=== PATIENT | female | born 1985 | race Caucasian/White ===

== ENCOUNTER 2022-11-24 17:32 | Inpatient (IN) | payer MEDICAID ==
[~2022-11-24] VITALS: Ht 172.7 cm; Wt 86.2 kg
[2022-11-24 17:39] VITALS: BP 119/74
--- NOTE | 2022-11-24 18:03 | NUR ---
Dr. Fletcher evaluating patient at bedside.
--- NOTE | 2022-11-24 18:09 | NUR ---
37 y/o female bib self with c/o SOB x 7 days. Per patient, she is having increased SOB in the past couple of days. Patient has non-productive cough and congestion. Denies any fever or chills. Patient is saturating at 94% oxygen on room air. Medical History:Asthma, Cardiac Arrest (April 2022) ALLERGY: CIPROFLOXACIN
[2022-11-24] MEDS ORDERED: IPRATROPIUM 0.02% 0.5 MG/2.5 ML NEBU INH ONE (18:10)
[2022-11-24] MEDS ORDERED: methylPREDNISolone SS 125 MG/2 ML VIAL IVP ONE (18:10)
[2022-11-24] MEDS ORDERED: ALBUTEROL 0.083% 2.5 MG/3 ML NEBU INH ONE (18:10)
--- NOTE | 2022-11-24 18:31 | NUR ---
X-Ray at bedside.
[2022-11-24 18:34] LABS: BASOPHILS # (AUTO) 0.1 K/uL (0.00-0.22); BASOPHILS % (AUTO) 1.2 % (0.0-2.0); EOSINOPHILS # (AUTO) 1.8 K/uL (0-0.4); EOSINOPHILS % (AUTO) 21.6 % (0.0-4.0); HEMATOCRIT 38.5 % (36-48); HEMOGLOBIN 13.2 g/dL (12.0-16.0); LYMPHOCYTES # (AUTO) 2.3 K/uL (2.5-16.5); LYMPHOCYTES % (AUTO) 27.7 % (20.5-51.1); MEAN CORPUSCULAR HEMOGLOBIN 29 pg (27-31); MEAN CORPUSCULAR HGB CONC 34 g/dL (33-37); MEAN CORPUSCULAR VOLUME 85.8 fL (80-94); MONOCYTES # (AUTO) 0.5 K/uL (0.8-1.0); MONOCYTES % (AUTO) 5.6 % (1.7-9.3); NEUTROPHILS # (AUTO) 3.6 K/uL (1.8-7.7); NEUTROPHILS % (AUTO) 43.9 % (42.2-75.2); PLATELET COUNT (AUTO) 285 K/uL (140-450); RED BLOOD CELL COUNT(AUTO) 4.48 MIL/uL (4.20-5.40); RED CELL DISTRIBUTION WIDTH 15.2 % (11.6-13.7); WHITE BLOOD COUNT (AUTO) 8.2 K/uL (4.8-10.8)
[2022-11-24] MEDS: FUROSEMIDE 40 MG/4 ML VIAL IVP ONE ×2 (18:34→18:59)
[2022-11-24] MEDS: MAG SULF 2000 MG/WATER PREMIX 50 ML IV ONE ×2 (18:36→19:00)
[2022-11-24 18:52] LABS: ANION GAP 9.6 (8-16); CARBON DIOXIDE 28.8 mmol/L (21-32); POTASSIUM 4.4 mmol/L (3.5-5.1); TOTAL BILIRUBIN 1.5 mg/dL (0.0-1.0)
[2022-11-24 18:53] LABS: ALBUMIN 3.7 g/dL (3.4-5.0)
--- NOTE | 2022-11-24 19:01 | NUR ---
RT at bedside.
[2022-11-24 19:02] LABS: APPEARANCE,URINE CLEAR (CLEAR); BILIRUBIN,URINE NEGATIVE (NEGATIVE); BLOOD, URINE NEGATIVE (NEGATIVE); COLOR,URINE YELLOW (YELLOW); LEUKOCYTE ESTERASE ,URINE NEGATIVE (NEGATIVE); NITRITE, URINE NEGATIVE (NEGATIVE); PH,URINE 6.5 (5.0-9.0); UGLUCOSE NEGATIVE (NEGATIVE)
--- NOTE | 2022-11-24 19:21 | NUR ---
Report given to AYSHA Khalil for transfer of care.
--- NOTE | 2022-11-24 20:27 | NUR ---
ANDREW HERNÁNDEZ [facility] GIVEN CLINICAL INFORMATION.
--- NOTE | 2022-11-24 20:36 | NUR ---
PT WILL BE ADMISSION PENDING ORDERS
[2022-11-24] MEDS ORDERED: PAX20 PO (20:54)
[2022-11-24] MEDS ORDERED: PRON INH (20:54)
--- NOTE | 2022-11-24 20:55 | NUR ---
BELONGINGS LIST AND MED RECONCILE COMPLETED
[2022-11-24] MEDS ORDERED: MAGNESIUM OXIDE 400 MG TAB PO PRN (21:20)
[2022-11-24] MEDS ORDERED: ONDANSETRON 4 MG/2 ML VIAL IVP PRN (21:20)
[2022-11-24] MEDS ORDERED: ACETAMINOPHEN 325 MG TAB PO PRN (21:20)
[2022-11-24] MEDS ORDERED: HYDROcodone/APAP 5/325 MG 1 TAB TAB PO PRN (21:20)
[2022-11-24] MEDS ORDERED: POTASSIUM CHLORIDE 10 MEQ TABER PO PRN (21:20)
[2022-11-24] MEDS ORDERED: MORPHINE SULFATE 4 MG/ML SYR IVP PRN (21:20)
--- NOTE | 2022-11-24 21:42 | NUR ---
TELE ADMISSION ORDERS PER DR ALEXANDRA. PENDING BED ASSIG
--- NOTE | 2022-11-24 22:50 | NUR ---
REPORT GIVEN TO MIGUELITO VARGAS
--- NOTE | 2022-11-24 22:59 | NUR ---
Patient will be admitted to care of DR ALEXANDRA. Admited to TELE. Will go to room 104A. Belongings list completed. Report to MIGUELITO VARGAS.
--- NOTE | 2022-11-24 23:01 | NUR ---
PATIENT WAS BROUGHT TO [facility] UNIT FROM ER VIA MIGUEL ROSARIO WITH THE CC: SOB DX: CHF EXACERBATION, ASTHMA, HYPOXIA. NO SOB NOTED ON 2L O2 VIA NC. IV ACCESS TO LEFT AC 20 GAUGE SALINE LOCK INTACT AND PATENT. SKIN INTACT, SWELLING TO BILATERAL LOWER EXTREMITY. NO COMPLAINTS OF PAIN. MRSA SCREENING DONE. PATIENT APPEARS SLEEPY. CALL LIGHT WITHIN REACH. PATIENT IS AMBULATORY WITH STEADY GAIT. BED WHEELS LOCK.
[2022-11-24] MEDS: methylPREDNISolone SS 40 MG/ML VIAL IVP SCH (23:33)
[2022-11-25] VITALS: BP 109/71
[2022-11-25 04:00] VITALS: BP 101/64
[2022-11-25] MEDS: methylPREDNISolone SS 40 MG/ML VIAL IVP SCH ×2 (06:35→21:01)
--- NOTE | 2022-11-25 06:55 | NUR ---
PATIENT NEEDS ATTENDED TO. PATIENT IN STABLE CONDITION.
[2022-11-25 07:05] LABS: ANION GAP 10.7 (8-16); CARBON DIOXIDE 27.3 mmol/L (21-32); CREATININE 0.9 mg/dL (0.6-1.3)
--- NOTE | 2022-11-25 07:21 | NUR ---
RECEIVED PATIENT FROM RN GASTROENTEROLOGY NURSE.PATIENT SLEEPING IN BED.CHEST RISING AND FALLING EVENLY.ALL SAFETY MEASURES IN PLACE.CALL LIGHT WITHIN REACH..POC DISCUSSED WITH THE RN GASTROENTEROLOGY NURSE.WILL CONTINUE TO MONITOR.
[2022-11-25 07:23] LABS: ALBUMIN 3.8 g/dL (3.4-5.0); ANION GAP 11.8 (8-16); CARBON DIOXIDE 26.3 mmol/L (21-32); CREATININE 0.9 mg/dL (0.6-1.3); MAGNESIUM 2.2 mg/dL (1.8-2.4); POTASSIUM 4.1 mmol/L (3.5-5.1); TOTAL BILIRUBIN 0.9 mg/dL (0.0-1.0)
[2022-11-25 08:00] VITALS: BP 119/60
[2022-11-25] MEDS: FUROSEMIDE 40 MG/4 ML VIAL IVP SCH ×2 (08:51→20:49)
[2022-11-25] MEDS: DOCUSATE SODIUM 100 MG GELCAP PO SCH (08:52)
--- NOTE | 2022-11-25 10:30 | NUR ---
PATIENT HAS BEEN SCREENED AND CATEGORIZED MODERATE NUTRITION RISK. PATIENT WILL BE SEEN WITHIN 3-5 DAYS OF ADMISSION. HERMELINDA MARIE RD
--- NOTE | 2022-11-25 11:29 | NUR ---
FREQUENT ROUNDS DONE, PATIENT ON ROOM AIR SATURATION AT 97%.NO OTHER SIGNS OF DISTRESS NOTED.
[2022-11-25 12:00] VITALS: BP 110/68
[2022-11-25 12:41] LABS: BARBITURATE, URINE NEGATIVE ng/ml (NEG <=200); BENZODIAZEPINE, URINE NEGATIVE ng/mL (NEG <=200); CANNABINOID, URINE NEGATIVE ng/mL (NEG <=50); COCAINE, URINE NEGATIVE ng/mL (NEG <=300); OPIATE, URINE NEGATIVE ng/mL (NEG <=2000); PHENCYCLIDINE SCREEN,URINE NEGATIVE ng/mL (NEG <=25)
[2022-11-25 16:00] VITALS: BP 101/50
--- NOTE | 2022-11-25 19:00 | NUR ---
PATIENT COMPLAINS OF SOB, CHECKED THE VITALS, PUT THE PATIENT ON NC 2L. SATURATION 91%.
--- NOTE | 2022-11-25 19:25 | NUR ---
ENDORSED THE PATIENT TO BUSINESS EDUCATION INSTRUCTOR NURSE, FOR THE CONTINUITY OF CARE.
[2022-11-25 20:00] VITALS: BP 108/63
--- NOTE | 2022-11-25 20:47 | NUR ---
PATIENT IN BED AWAKE VERBALLY RESPONSIVE. AMBULATORY. ON O2 2L NC SATING 97%. RESPIRATION EVEN UNLABORED. NO COMPLAINTS OF PAIN. NEEDS ATTENDED TO. CALL LIGHT IN REACH.
--- NOTE | 2022-11-25 20:48 | NUR ---
ALL SCHEDULED MEDICATIONS DUE ADMINISTERED.
[2022-11-26] VITALS: BP 105/60
[2022-11-26 04:00] VITALS: BP 100/50
[2022-11-26 06:49] LABS: ANION GAP 12.4 (8-16); CARBON DIOXIDE 28.9 mmol/L (21-32); POTASSIUM 4.3 mmol/L (3.5-5.1)
[2022-11-26 07:12] LABS: ALBUMIN 3.6 g/dL (3.4-5.0); CARBON DIOXIDE 28.3 mmol/L (21-32); MAGNESIUM 2.2 mg/dL (1.8-2.4); POTASSIUM 4.3 mmol/L (3.5-5.1); TOTAL BILIRUBIN 0.8 mg/dL (0.0-1.0)
--- NOTE | 2022-11-26 07:19 | NUR ---
RECEIVED REPORT FROM COOLING SYSTEM OPERATOR NURSE FOR CONTINUITY OF CARE, POC DISCUSSED. PT IS RESTING ON HER SIDE IN BED WITH CHEST RISING AND FALLING EVEN AND UNLABORED. ON TELE MONITOR. ALL SAFETY MEASURES IN PLACE, CALL LIGHT WITHIN REACH.
[2022-11-26 08:00] VITALS: BP 111/67
[2022-11-26] MEDS: FUROSEMIDE 40 MG/4 ML VIAL IVP SCH ×2 (09:34→20:49)
[2022-11-26] MEDS: methylPREDNISolone SS 40 MG/ML VIAL IVP SCH ×2 (09:34→20:39)
[2022-11-26] MEDS: DOCUSATE SODIUM 100 MG GELCAP PO SCH (09:35)
--- NOTE | 2022-11-26 10:56 | NUR ---
ALL QUESTIONS ANSWERED REGARDING PLAN OF CARE AND PENDING ORDERS. PT VERBALIZED UNDERSTANDING. PADS PROVIDED FOR MENSTRUATION AND CRANBERRY JUICE PROVIDED PER REQUEST. ALL NEEDS REPORTED TO BE MET, ALL SAFETY MEASURES IN PLACE, CALL LIGHT WITHIN REACH.
[2022-11-26 12:00] VITALS: BP 108/64
--- NOTE | 2022-11-26 13:13 | NUR ---
NO S/S OF DISTRESS, PT ASLEEP IN BED WITH 2L NC ON WITH CHEST RISING AND FALLING EVEN AND UNLABORED. ALL SAFETY MEASURES IN PLACE, CALL LIGHT WITHIN REACH.
[2022-11-26 16:00] VITALS: BP 112/67
--- NOTE | 2022-11-26 18:04 | NUR ---
ALL NEEDS MET THROUGHOUT THE SHIFT, ALL QUESTIONS ANSWERED. ON TELE MONITOR. NO S/S OF DISTRESS. ALL SAFETY MEASURES IN PLACE, CALL LIGHT WITHIN REACH.
[2022-11-26 20:00] VITALS: BP 98/47
--- NOTE | 2022-11-26 20:00 | NUR ---
PATIENT ALERT ORIENTED LYING IN BED. NO S/S OF DISTRESS. BREATHING REGULAR NON LABORED. NEEDS ATTENDED TO. NO COMPLAINTS OF PAIN. CALL LIGHT WITHIN REACH. ABLE TO AMBULATE. IV ACCESS TO LAC SALINE LOCK.
--- NOTE | 2022-11-26 20:37 | NUR ---
ADMINISTERED SCHEDULED DUE MEDICATIONS.
--- NOTE | 2022-11-26 21:00 | NUR ---
PATIENT COMPLAINED OF ABDOMINAL PAIN , CRAMPING, MEDICATED.
[2022-11-27] VITALS: BP 114/76
[2022-11-27 04:00] VITALS: BP 103/74
[2022-11-27 06:48] LABS: ALBUMIN 3.9 g/dL (3.4-5.0); ANION GAP 9.6 (8-16); CARBON DIOXIDE 29.8 mmol/L (21-32); CREATININE 0.9 mg/dL (0.6-1.3); MAGNESIUM 2.2 mg/dL (1.8-2.4); POTASSIUM 4.4 mmol/L (3.5-5.1); TOTAL BILIRUBIN 1.1 mg/dL (0.0-1.0)
--- NOTE | 2022-11-27 07:06 | NUR ---
RECEIVED REPORT FROM NIGHT NURSE MIGUELITO FOR CONTINUITY OF CARE. INITIAL ASSESSMENT DONE. IVF INFUSING WELL. CALL LIGHT KEPT WITHIN REACH. WILL CONTINUE TO MONITOR.
--- NOTE | 2022-11-27 07:08 | NUR ---
ENDORSED PATIENT TO AM SHIFT NURSE FOR CONTINUITY OF CARE.
[2022-11-27 08:00] VITALS: BP 117/71
[2022-11-27] MEDS: DOCUSATE SODIUM 100 MG GELCAP PO SCH (09:13)
--- NOTE | 2022-11-27 09:13 | NUR ---
SCHEDULED PO MEDICATIONS GIVEN. TOLERATING WELL.
[2022-11-27] MEDS: methylPREDNISolone SS 40 MG/ML VIAL IVP SCH (09:14)
--- NOTE | 2022-11-27 09:14 | NUR ---
SCHEDULED SOLU MEDROL IVP WAS GIVEN BY POORNIMA VARGAS. TOLERATING WELL.
--- NOTE | 2022-11-27 09:19 | NUR ---
RECEIVED NEW ORDER FROM DR. WALDEN. TRANSFER TO MED SURG. NOTED AND CARRIED OUT.
--- NOTE | 2022-11-27 11:12 | NUR ---
DC PLANNING SW ATTEMPTED TO MEET PT AT BEDSIDE TO COMPLETE ASSESSMENT, PT AGGRESSIVE AND HOSTILE AND DECLINED TO PARTICIPATE IN ASSESSMENT. PTS MOTHER AND SISTER ARRIVED TO PTS ROOM AND SW LEFT FAMILY TO VISIT. ATTEMPTED TO MEET PT AT BEDSIDE FOR SECOND ATTEMPT ON COMPLETING ASSESSMENT HOWEVER, PT ON PHONE.
--- NOTE | 2022-11-27 11:37 | NUR ---
DC PLANN[age] YRS OLD FEMALE PATIENT WAS ADMITTED FROM HOME WITH A DX OF CHF EXACERBATION AND COPD EXACERBATION. ON O2 3L/NC SATING 96%. ADMINISTERED IV LASIX AND HOME MEDS. SEEN BY DIRECTOR SKILLS DR WALDEN ORDERED ECHO. DC PLAN TO GO HOME WHEN STABLE. RECEIVED A CALL FROM JASIEL LOPES [phone] UPDATED PT'S CLINICAL AND FAXED TO [phone] . PER JOSE DE JESUS REQUESTING TO SPEAK WITH PATIENT AND TRANSFERRED THE CALL TO PT'S ROOM. AUTH # FOR HOSPITAL STAY [id number] MOSES TO FOLLOW
--- NOTE | 2022-11-27 14:16 | NUR ---
DR. CHATTERJEE NOTIFIED REGARDING PT WANTS TO GO HOME. PT CANNOT WAIT ECHOCARDIOGRAM RESULT. AWAITING FOR RESULT.
--- NOTE | 2022-11-27 14:52 | NUR ---
INFORMED BY WELLNESS SPECIALIST THAT PT NOT ON HER ROOM. CHECKED THE LOBBY. PT STANDING AT THE LOBBY, EXPLAINED RISK AND BENEFITS LEAVING AGAINST MEDICAL ADVISE, BUT STILL INSISTING TO LEAVE AND STATING "THAT MY WAS KICKED OUT HERE AND I WANT TO BE WITH HIM." HOME HEALTH OCCUPATIONAL THERAPIST MADE AWARE. DR. CHATTERJEE NOTIFIED.
[2022-11-27] MEDS ORDERED: FUROSEMIDE 40 MG TAB PO SCH (17:00)
[2022-11-28] MEDS ORDERED: lisinopriL 5 MG TAB PO SCH (09:00)
[2022-11-28] MEDS ORDERED: METOPROLOL SUCCINATE 50 MG TABER PO SCH (09:00)
== END 2022-11-27 14:52 | disposition left against medical advice (07) | DRG 194 ==
LOC: MED 17:32 → MTU 21:21
PROVIDERS: ADMIT Student in an Organized Health Care Education/Training Program; ATTEND Student in an Organized Health Care Education/Training Program
DX: I11.0 Hypertensive heart disease with heart failure (principal); J96.01 Acute respiratory failure with hypoxia; R65.11 Systemic inflammatory response syndrome (SIRS) of non-infectious origin with acute organ dysfunction; J45.901 Unspecified asthma with (acute) exacerbation; I50.23 Acute on chronic systolic (congestive) heart failure; Z20.822 Contact with and (suspected) exposure to COVID-19; F15.10 Other stimulant abuse, uncomplicated; Z88.1 Allergy status to other antibiotic agents; Z79.899 Other long term (current) drug therapy
CPT/HCPCS: 36415; 71045; 80048; 80053; 80305; 81003; 83735; 83880; 84484; 85025; 87081; 93005; 94640; 96365; 96366; 96375; 99285; J1644; J1940; J2920; J2930; J3475; J7613; J7644; Q0092

== ENCOUNTER 2023-02-01 19:23 | Emergency (ER) | payer MEDICAID ==
[~2023-02-01] VITALS: Ht 172.7 cm; Wt 88.5 kg
[~2023-02-01 19:23] MED LIST: PAX20 PO; PRON INH
[2023-02-01 19:43] VITALS: BP 110/60
--- NOTE | 2023-02-01 19:59 | NUR ---
report received fr triage nurse pt her for evaluation of cp and sob. , hx chf
--- NOTE | 2023-02-01 20:13 | NUR ---
XRAY AT BEDSIDE
[2023-02-01] MEDS ORDERED: FUROSEMIDE 40 MG/4 ML VIAL IVP ONE (20:25)
[2023-02-01 20:26] LABS: BASOPHILS # (AUTO) 0.1 K/uL (0.00-0.22); BASOPHILS % (AUTO) 0.8 % (0.0-2.0); EOSINOPHILS # (AUTO) 0.4 K/uL (0-0.4); EOSINOPHILS % (AUTO) 4.9 % (0.0-4.0); HEMATOCRIT 38.7 % (36-48); HEMOGLOBIN 13.1 g/dL (12.0-16.0); LYMPHOCYTES % (AUTO) 24.3 % (20.5-51.1); MEAN CORPUSCULAR HEMOGLOBIN 29 pg (27-31); MEAN CORPUSCULAR HGB CONC 34 g/dL (33-37); MEAN CORPUSCULAR VOLUME 85.6 fL (80-94); MONOCYTES # (AUTO) 0.5 K/uL (0.8-1.0); MONOCYTES % (AUTO) 6.5 % (1.7-9.3); NEUTROPHILS # (AUTO) 5.3 K/uL (1.8-7.7); NEUTROPHILS % (AUTO) 63.5 % (42.2-75.2); PLATELET COUNT (AUTO) 289 K/uL (140-450); RED BLOOD CELL COUNT(AUTO) 4.52 MIL/uL (4.20-5.40); RED CELL DISTRIBUTION WIDTH 14.2 % (11.6-13.7); WHITE BLOOD COUNT (AUTO) 8.4 K/uL (4.8-10.8)
[2023-02-01 20:48] LABS: ALBUMIN 3.4 g/dL (3.4-5.0); ANION GAP 7.4 (8-16); CARBON DIOXIDE 34.1 mmol/L (21-32); CREATININE 1.1 mg/dL (0.6-1.3); POTASSIUM 3.5 mmol/L (3.5-5.1); TOTAL BILIRUBIN 0.6 mg/dL (0.0-1.0)
[2023-02-01 20:52] LABS: LIPASE 145 U/L (73-393)
[2023-02-01] MEDS ORDERED: MAG SULF 2000 MG/WATER PREMIX 50 ML IV ONE (21:45)
--- NOTE | 2023-02-01 21:56 | NUR ---
SUNDEEPING , PT STS IM FEELING BETTER
[2023-02-01 23:27] VITALS: BP 110/77
--- NOTE | 2023-02-01 23:27 | NUR ---
Patient discharged with v/s stable. Written and verbal after care instructions given and explained. Patient verbalized understanding. Ambulatory with steady gait. All questions addressed prior to discharge. Advised to follow up with PMD.
== END 2023-02-01 23:27 | disposition home or self-care (01) ==
LOC: MED 19:23
DX: I50.9 Heart failure, unspecified (principal); R07.9 Chest pain, unspecified; E83.42 Hypomagnesemia; F15.10 Other stimulant abuse, uncomplicated; J45.909 Unspecified asthma, uncomplicated; Z79.899 Other long term (current) drug therapy; Z88.1 Allergy status to other antibiotic agents
CPT/HCPCS: 36415; 71045; 80053; 81025; 83690; 83735; 83880; 84484; 85025; 93005; 96365; 96375; 99285; J1940; J3475; Q0092

== ENCOUNTER 2023-03-13 13:53 | Inpatient (IN) | payer MEDICAID ==
[~2023-03-13] VITALS: Ht 172.7 cm; Wt 84.4 kg
[2023-03-13 14:26] VITALS: BP 102/60; PULSE 86; RESP 28; TEMP 97.7; O2SAT 95
[2023-03-13 14:30] VITALS: O2SAT 72
--- NOTE | 2023-03-13 14:30 | NUR ---
PATIENT PRESENTS TO ED WITH CHEST PAIN AND SHORTNESS OF BREATH. PT STATES SHES HAD THIS PROBLEM FOR 2 DAYS. PT HAS SIGNS AND SYMPTOMS OF CHF OVERLOAD.PT HAS HISTORY OF CHF.PT IS HOMELESS AND NEEDS A SOCIAL CONSULT. PT . PT STATES SHES BEEN NON COMPLIENT WITH MEDICATION. DENIES ANY PRESSENCE OF ABD PAIN; SKIN IS PINK/WARM/DRY; AAOX4 WITH EVEN AND STEADY GAIT; LUNG SOUNDS WHEEZING BL; HR EVEN AND REGULAR; PT DENIES ANY FEVER, CP, SOB, OR COUGH AT THIS TIME; PATIENT STATES PAIN OF 8/10 AT THIS TIME; VSS; PATIENT POSITIONED FOR COMFORT; HOB ELEVATED; BEDRAILS UP X2; BED DOWN. ER MD MADE AWARE OF PT STATUS.
[2023-03-13] MEDS ORDERED: ALBUTEROL SULFATE/IPRATROPIU 3 ML SOL IH ONE ×2 (14:35→14:40)
--- NOTE | 2023-03-13 14:35 | NUR ---
TO BED 5 WITH RN AT BEDSIDE
[2023-03-13] MEDS ORDERED: predniSONE 20 MG TAB PO ONE (14:40)
[2023-03-13] MEDS ORDERED: FUROSEMIDE 40 MG/4 ML VIAL IVP ONE (14:45)
[2023-03-13] MEDS ORDERED: ASPIRIN 81 MG TAB.CHEW PO ONE (14:45)
[2023-03-13 14:50] VITALS: PULSE 89; RESP 32; O2SAT 98
--- NOTE | 2023-03-13 14:53 | NUR ---
JULIO CESAR OVERRIDEN DUE TO SOB EXHIBITED BY PATIENT. BEDSIDE AND GAVE VERBAL ORDER. PHYSICIAN WILL ENTER ORDER.
[2023-03-13 15:09] LABS: BASOPHILS # (AUTO) 0.1 K/uL (0.00-0.22); BASOPHILS % (AUTO) 0.9 % (0.0-2.0); EOSINOPHILS % (AUTO) 15.7 % (0.0-4.0); HEMATOCRIT 41.7 % (36-48); HEMOGLOBIN 14.3 g/dL (12.0-16.0); LYMPHOCYTES # (AUTO) 1.4 K/uL (2.5-16.5); LYMPHOCYTES % (AUTO) 21.6 % (20.5-51.1); MEAN CORPUSCULAR HEMOGLOBIN 29 pg (27-31); MEAN CORPUSCULAR HGB CONC 34 g/dL (33-37); MEAN CORPUSCULAR VOLUME 84.6 fL (80-94); MONOCYTES # (AUTO) 0.5 K/uL (0.8-1.0); MONOCYTES % (AUTO) 7.5 % (1.7-9.3); NEUTROPHILS # (AUTO) 3.4 K/uL (1.8-7.7); NEUTROPHILS % (AUTO) 54.3 % (42.2-75.2); PLATELET COUNT (AUTO) 282 K/uL (140-450); RED BLOOD CELL COUNT(AUTO) 4.93 MIL/uL (4.20-5.40); RED CELL DISTRIBUTION WIDTH 15.9 % (11.6-13.7); WHITE BLOOD COUNT (AUTO) 6.3 K/uL (4.8-10.8)
[2023-03-13] MEDS ORDERED: NITROGLYCERIN 0.4 MG TAB SL ONE (15:10)
[2023-03-13] MEDS ORDERED: MAG SULF 2000 MG/WATER PREMIX 50 ML IV ONE (15:15)
[2023-03-13 15:27] LABS: PROTHROMBIN TIME 10.2 secs (10.8-13.4)
[2023-03-13 15:28] LABS: ALBUMIN 3.3 g/dL (3.4-5.0); ANION GAP 10.3 (8-16); CARBON DIOXIDE 30.1 mmol/L (21-32); POTASSIUM 3.4 mmol/L (3.5-5.1); TOTAL BILIRUBIN 0.7 mg/dL (0.0-1.0)
[2023-03-13 15:59] LABS: BARBITURATE, URINE NEGATIVE ng/ml (NEG <=200); BENZODIAZEPINE, URINE NEGATIVE ng/mL (NEG <=200); CANNABINOID, URINE NEGATIVE ng/mL (NEG <=50); COCAINE, URINE NEGATIVE ng/mL (NEG <=300); OPIATE, URINE NEGATIVE ng/mL (NEG <=2000); PHENCYCLIDINE SCREEN,URINE NEGATIVE ng/mL (NEG <=25)
[2023-03-13] MEDS ORDERED: ONDANSETRON 4 MG/2 ML VIAL IVP PRN (18:30)
[2023-03-13] MEDS ORDERED: MAGNESIUM OXIDE 400 MG TAB PO PRN (18:30)
[2023-03-13] MEDS ORDERED: HYDROcodone/APAP 5/325 MG 1 TAB TAB PO PRN (18:30)
[2023-03-13] MEDS ORDERED: ACETAMINOPHEN 325 MG TAB PO PRN (18:30)
[2023-03-13] MEDS ORDERED: POTASSIUM CHLORIDE 10 MEQ TABER PO PRN (18:30)
[2023-03-13] MEDS ORDERED: MAG SULF 2000 MG/WATER PREMIX 50 ML IV PRN (18:30)
[2023-03-13] MEDS ORDERED: KCL 20 MEQ IN 100 mL PREMIX 200 ML IV PRN (18:30)
--- NOTE | 2023-03-13 19:26 | NUR ---
The patient's care was reviewed and supervised by [facility], RN.
--- NOTE | 2023-03-13 19:43 | NUR ---
RELEASED CARE TO AYSHA BUNCH AT 1930
[2023-03-13 19:54] VITALS: PULSE 64; RESP 20; O2SAT 94
[2023-03-13] MEDS: ALBUTEROL SULFATE/IPRATROPIU 3 ML SOL IH SCH (19:54)
[2023-03-13] MEDS: BUDESONIDE 0.5 MG/2 ML NEBU INH SCH (19:54)
--- NOTE | 2023-03-13 22:00 | NUR ---
Patient will be admitted to care of [facility]. Admited to TELE. Will go to [id number]. Belongings list completed. Report to MIGUELITO VARGAS.
[2023-03-13 22:05] VITALS: PULSE 73; PULSE 80; RESP 18; O2SAT 93
--- NOTE | 2023-03-13 22:05 | NUR ---
PATIENT WAS BROUGHT TO THE UNIT AFTER GIVING REPORT. AAOX4. O2 AT 2L NC, NO ACUTE DISTRESS. NO COMPLAINTS OF PAIN. IV SITE TO RIGHT AC SALINE LOCKED. NASAL SWAB DONE FOR MRSA SCREENING. AMBULATORY. BED WHEELS LOCKED IN LOW POSITION. NEEDS ATTENDED TO. CALL LIGHT IN REACH.
[2023-03-14] VITALS (9 sets, daily range): BP systolic 98–121; BP diastolic 57–72; PULSE 55–90; RESP 18–22; TEMP 96.8–97.8; O2SAT 90–98
[2023-03-14] MEDS: ALBUTEROL SULFATE/IPRATROPIU 3 ML SOL IH SCH ×4 (00:51→19:02)
[2023-03-14 05:40] LABS: BASOPHILS % (AUTO) 0.1 % (0.0-2.0); EOSINOPHILS % (AUTO) 0.1 % (0.0-4.0); HEMATOCRIT 40.3 % (36-48); HEMOGLOBIN 13.5 g/dL (12.0-16.0); LYMPHOCYTES # (AUTO) 0.9 K/uL (2.5-16.5); LYMPHOCYTES % (AUTO) 11.6 % (20.5-51.1); MEAN CORPUSCULAR HEMOGLOBIN 29 pg (27-31); MEAN CORPUSCULAR HGB CONC 34 g/dL (33-37); MONOCYTES # (AUTO) 0.3 K/uL (0.8-1.0); MONOCYTES % (AUTO) 3.8 % (1.7-9.3); NEUTROPHILS # (AUTO) 6.7 K/uL (1.8-7.7); NEUTROPHILS % (AUTO) 84.4 % (42.2-75.2); PLATELET COUNT (AUTO) 269 K/uL (140-450); RED BLOOD CELL COUNT(AUTO) 4.74 MIL/uL (4.20-5.40); RED CELL DISTRIBUTION WIDTH 15.9 % (11.6-13.7); WHITE BLOOD COUNT (AUTO) 7.9 K/uL (4.8-10.8)
[2023-03-14 05:52] LABS: ANION GAP 8.8 (8-16); CARBON DIOXIDE 30.3 mmol/L (21-32); POTASSIUM 4.1 mmol/L (3.5-5.1)
[2023-03-14 06:02] LABS: MAGNESIUM 2.2 mg/dL (1.8-2.4)
--- NOTE | 2023-03-14 06:55 | NUR ---
UT CURRENTLY ON 2L NASAL CANNULA. SATURATION 94%. EQUAL CHEST RISE, NO DISTRESS NOTED, SHE WOULD LIKE ME TO COME BACK LATER FOR HER BREATHING TREATMENT, SHE IS TIRES. WILL CONTINUE TO MONITOR.
--- NOTE | 2023-03-14 07:10 | NUR ---
RECEIVED REPORT FROM FINGERPRINT TECHNICIAN NURSE FOR CONTINUITY OF CARE. PT IN BED RESTING AT THIS TIME. RESPIRATIONS ARE EVEN AND UNLABORED ON 2L VIA NC. NO SIGNS OF DISTRESS NOTED. PT IS ALERT AND ORIENTED X4, ABLE TO VERBALIZE NEEDS, ABLE TO FOLLOW COMMANDS. ABD IS NONTENDER, NONDISTENDED WITH BOWEL SOUNDS PRESENT IN ALL QUADRANTS. PT IS CONTINENT OF BOWEL AND BLADDER. LAST BOWEL MOVEMENT WAS 03/13/23. PT HAS FULL ROM TO UPPER AND LOWER EXTREMITIES. PT HAS IV TO RAC, 20G, SALINE LOCKED. SKIN IS WARM, DRY, AND INTACT. CALL LIGHT WITHIN REACH. ALL SAFETY MEASURES IN PLACE.
[2023-03-14] MEDS: BUDESONIDE 0.5 MG/2 ML NEBU INH SCH ×2 (07:30→19:02)
--- NOTE | 2023-03-14 08:00 | NUR ---
Patient's Plan of Care was discussed and reviewed with REVERSE UNIT OPERATOR FISHERMAN: DASIA
[2023-03-14] MEDS: DOCUSATE SODIUM 100 MG GELCAP PO SCH (08:06)
--- NOTE | 2023-03-14 08:10 | NUR ---
ADMINISTERED ALL SCHEDULED MEDICATIONS. EDUCATED PT ON MEDS ADMINISTERED. ANSWERED ALL QUESTIONS. PT VERBALIZED UNDERSTANDING.
--- NOTE | 2023-03-14 08:43 | NUR ---
PATIENT HAS BEEN SCREENED AND CATEGORIZED MODERATE NUTRITION RISK. PATIENT WILL BE SEEN WITHIN 3-5 DAYS OF ADMISSION. 03/16/23-03/18/[address]
--- NOTE | 2023-03-14 08:49 | NUR ---
BREATHING TREATMENT COMPLETED. STRONG COUGH, SATURATION 95%, COARSE/WHEEZE HEARD ON AUSCULTATION. PT CURRENTLY ON 2L NASAL CANNULA. PT FEELS BETTER AFTER TREATMENT. PT NEEDS MET, CALL LIGHT WITHIN REACH. WILL CONTINUE TO MONITOR.
[2023-03-14] MEDS: predniSONE 20 MG TAB PO SCH (10:02)
[2023-03-14] MEDS ORDERED: FUROSEMIDE 20 MG/2 ML VIAL IVP SCH (10:21)
--- NOTE | 2023-03-14 11:09 | NUR ---
PT BEING UNPLEASANT TO STAFF. YELLING AND BEING DISRESPECTFUL. SPOKE WITH PT REGARDING ATTITUDE TOWARD STAFF. PT STATES "I DON'T CARE. I KNOW I LOOK LIKE SHIT RIGHT NOW BUT I DONT GIVE A DAMN. DO WHAT I SAY. I KNOW WHAT'S BEST FOR ME".
--- NOTE | 2023-03-14 12:54 | NUR ---
PT IS CURRENTLY SLEEPING. WILL RETURN LATER FOR BREATHING TREATMENT. NO DISTRESS NOTED. WILL CONTINUE TO MONITOR.
--- NOTE | 2023-03-14 13:38 | NUR ---
03/14/23 RD INITIAL ASSESSMENT COMPLETED PLEASE REFER TO NUTRITION ASSESSMENT UNDER CARE ACTIVITY FOR ESTIMATED NUTRITIONAL NEEDS. 1. CONTINUE CARDIAC DIET TOLERATED 2. RD TO FOLLOW-UP 7 DAYS, LOW RISK LYLE MENCHACA RD
--- NOTE | 2023-03-14 15:02 | NUR ---
PT IS STILL SLEEPING. EQUAL CHEST RISE, NO DISTRESS NOTED. WILL CONTINUE TO MONITOR.
--- NOTE | 2023-03-14 15:35 | NUR ---
DC: [age]ANN[age] YRS OLD FEMALE PATIENT WAS ADMITTED FROM HOME WITH A DX OF CHF EXACERBATION. PATIENT HAS A HX OF ASTHMA,AND CAD. CXR NORMAL. ON O2 3L/NC SATING 96% ADMINISTERED IV LASIX , BREATHING TREATMENT AND CONTINUED HOME MEDS. CONSULTED WITH CARDIO AND PULMO. DC PLAN TO GO HOME WHEN STABLE. CM TO FOLLOW Addendum: 03/15/23 at 1230 by TOMY MARTINEZ CM CALLED DR DAX AGUILAR LOCATED AT [address] [facility] [id number]. SPOKE WITH IZABELA WHO WAS ABLE TO HELP ME SCHEDULE A FOLLOW UP APPOINTMENT FOR 03/19/2023 AT 1700. WENT TO BEDSIDE TO INFORM PATIENT OF THE ABOVE INFORMATION WELL PROVIDED APPOINTMENT SLIP WITH THE ABOVE INFORMATION. ON SLIP PROVIDE [employer] TRANSPORTATION NUMBER AND JUST INCASE SHE NEED TO ARRANGE TRANSPORT. ALL PAPERWORK FAXED TO THE 'S OFFICE.
--- NOTE | 2023-03-14 19:02 | NUR ---
ENDORSED PT TO FISH BIN TENDER NURSE FOR CONTINUITY OF CARE. PT IS STABLE.
--- NOTE | 2023-03-14 19:05 | NUR ---
RECEIVED REPORT FROM PIPELINES MANAGER NURSE FOR CONTINUITY OF CARE. PT AWAKE, ALERT AND ORIENTED X 4.O2 2L VIA NC, RESPIRATIONS ARE EVEN AND UNLABORED.NO SIGNS OF DISTRESS NOTED. PT HAS IV TO RAC, 20G, SALINE LOCKED. SKIN IS WARM, DRY, AND INTACT. POC DISCUSSED. PT REQUESTING IF SHE CAN TAKE A SHOWER.CALL LIGHT WITHIN REACH. ALL SAFETY MEASURES IN PLACE.
--- NOTE | 2023-03-14 20:15 | NUR ---
PT REQUESTING IF SHE CAN GET TAKE A SHOWER BECAUSE PT FEELS DIRTY AND STARTED HER PERIOD. NOTIFIED BECAUSE PT IS ON TELE. SAID YES. ALL PRECAUTIONS IN PLACE. CALL LIGHT WITHIN REACH. WILL CONTINUE TO MONITOR.
--- NOTE | 2023-03-14 21:20 | NUR ---
PATIENT WENT TO HAVE A SHOWER. BELONGINGS CHECKED BEFORE GOING INSIDE THE SHOWER ROOM. WILL CONTINUE TO MONITOR.
[2023-03-15] VITALS (8 sets, daily range): BP systolic 98–104; BP diastolic 36–65; PULSE 67–113; RESP 17–20; TEMP 97.3–98; O2SAT 93–100
[2023-03-15] MEDS: ALBUTEROL SULFATE/IPRATROPIU 3 ML SOL IH SCH ×3 (01:16→13:11)
--- NOTE | 2023-03-15 02:57 | NUR ---
PATIENT ASLEEP, AROUSABLE BY VOICE.BREATHING EVEN AND UNLABORED. NO S/SX OF DISTRESS NOTED. ALL PRECAUTIONS IN PLACE. CALL LIGHT WITHIN REACH.WILL CONTINUE TO MONITOR.
[2023-03-15 05:14] LABS: BASOPHILS % (AUTO) 0.6 % (0.0-2.0); EOSINOPHILS # (AUTO) 0.4 K/uL (0-0.4); EOSINOPHILS % (AUTO) 5.1 % (0.0-4.0); HEMATOCRIT 41.3 % (36-48); HEMOGLOBIN 13.8 g/dL (12.0-16.0); LYMPHOCYTES # (AUTO) 2.7 K/uL (2.5-16.5); LYMPHOCYTES % (AUTO) 35.8 % (20.5-51.1); MEAN CORPUSCULAR HEMOGLOBIN 29 pg (27-31); MEAN CORPUSCULAR HGB CONC 33 g/dL (33-37); MEAN CORPUSCULAR VOLUME 86.2 fL (80-94); MONOCYTES # (AUTO) 0.6 K/uL (0.8-1.0); MONOCYTES % (AUTO) 7.7 % (1.7-9.3); NEUTROPHILS # (AUTO) 3.8 K/uL (1.8-7.7); NEUTROPHILS % (AUTO) 50.8 % (42.2-75.2); PLATELET COUNT (AUTO) 258 K/uL (140-450); RED BLOOD CELL COUNT(AUTO) 4.79 MIL/uL (4.20-5.40); WHITE BLOOD COUNT (AUTO) 7.4 K/uL (4.8-10.8)
[2023-03-15 05:19] LABS: ANION GAP 10.7 (8-16); CARBON DIOXIDE 29.6 mmol/L (21-32); CREATININE 0.8 mg/dL (0.6-1.3); POTASSIUM 4.3 mmol/L (3.5-5.1)
[2023-03-15 05:29] LABS: PHOSPHORUS 4.4 mg/dL (2.5-4.9)
--- NOTE | 2023-03-15 06:58 | NUR ---
PT IS STABLE. NO ACUTE EVENTS THROUGHOUT THE NIGHT. ALL NEEDS MET.NO S/SX OF DISTRESS AT THIS MOMENT. ALL PRECAUTIONS IN PLACE. CALL LIGHT WITHIN REACH. WILL ENDORSE TO DAY NURSE.
--- NOTE | 2023-03-15 07:00 | NUR ---
RECEIVED PT FROM RADIO MACHINIST FOR CONTINUITY OF CARE. ALERT AND ORIENTED X4. RESP. EVEN AND UNLABORED. ON CONT. O2 @ 2L/MIN VIA N/C. IV SITE INTACT, ON SALINE LOCK. CALL LIGHT KEPT WITHIN REACH. WILL CONTINUE TO MONITOR.
[2023-03-15] MEDS: BUDESONIDE 0.5 MG/2 ML NEBU INH SCH (07:21)
--- NOTE | 2023-03-15 08:00 | NUR ---
PT STABLE , WILL COVER PLANT RELIABILITY ENGINEER WITH IV MEDS AND ASSESSMENT , [id number]
[2023-03-15] MEDS ORDERED: FUROSEMIDE 40 MG/4 ML VIAL IVP SCH (09:00)
[2023-03-15] MEDS: DOCUSATE SODIUM 100 MG GELCAP PO SCH (10:23)
--- NOTE | 2023-03-15 10:23 | NUR ---
SCHEDULED MEDICATIONS GIVEN. TOLERATED WELL.
[2023-03-15] MEDS: predniSONE 20 MG TAB PO SCH (10:24)
[2023-03-15] MEDS ORDERED: BUDE1AER IH (10:59)
[2023-03-15] MEDS ORDERED: PRED20TA5 PO (10:59)
[2023-03-15] MEDS ORDERED: PRON INH (10:59)
--- NOTE | 2023-03-15 13:25 | NUR ---
In to see patient this afternoon to F/U regarding her anticipated discharge needs. Per patient, she has a place where she will go. Per patient, she will go to her friend, Slim's home in [place]. The patient provided me with his home address. Per patient, she is not in need of clothing or transportation, as she states Slim will transport her home. During my visit, we discussed the resources that were given to her. The patient indicated she was not interested in going to an inpatient treatment center. She states she didn't need inpatient, but could manage with out patient services. We spoke about the positive thinks that inpatient services can rectify such as housing, substance abuse, and mental health services. I reviewed the information that was previously given to her and explained what they offer. I placed an asterisk next to all outpatient services. The patient spoke about her involvement with CPS. She is not working her program and is not doing the work she needs to be doing. In conversation, the patient appeared to want to work on some areas of treatment and not others. The patient wanted housing services, but doesn't have the means to pay for housing. She has plans to apply for disability, but hasn't had a chance to get to the Quality Control Representative office. She states her [facility] professor of social work isn't working with her, but won't call her to ask about court approved services. The patient was provided with additional information on out patient services as well as room and board services. Addendum: 03/15/23 at 1340 by Jessica Craig SS Discharge Address: [address] [place] [address]; [place], [place]; [phone]
[2023-03-15] MEDS ORDERED: FURO40TA9 PO (15:30)
[2023-03-15] MEDS ORDERED: LISI5TAB24 PO (15:30)
[2023-03-15] MEDS ORDERED: FUROSEMIDE 40 MG TAB PO SCH (17:00)
--- NOTE | 2023-03-15 17:00 | NUR ---
RECEIVED PT FROM CLERICAL ORDER FILLER FOR CONTINUITY OF CARE. ALERT AND ORIENTED X4. RESP. EVEN AND UNLABORED. ON CONT. O2 @ 2L/MIN VIA N/C. IV SITE INTACT, ON SALINE LOCK. CALL LIGHT KEPT WITHIN REACH. WILL CONTINUE TO MONITOR. Addendum: 03/15/23 at 1739 by NEEL LAST LVN INCORRECT DOCUMENTATION
--- NOTE | 2023-03-15 17:25 | NUR ---
PT LEFT. DISCHARGED TO HOME. ALERT AND ORIENTED X 4. RESP. EVEN AND UNLABORED. RESP. EVEN AND UNLABORED. SKIN INTACT. DISCHARGED PAPERWORK SIGNED AND DISCUSS BY PT. ID BAND AND IV REMOVED. REMAINS STABLE.
[2023-03-16] MEDS ORDERED: lisinopriL 5 MG TAB PO SCH (09:00)
== END 2023-03-15 17:21 | disposition home or self-care (01) | DRG 194 ==
LOC: MED 13:53 → MTU 18:36
PROVIDERS: ADMIT Internal Medicine; ATTEND Internal Medicine
DX: I50.23 Acute on chronic systolic (congestive) heart failure (principal); J96.01 Acute respiratory failure with hypoxia; E44.1 Mild protein-calorie malnutrition; J45.901 Unspecified asthma with (acute) exacerbation; R65.10 Systemic inflammatory response syndrome (SIRS) of non-infectious origin without acute organ dysfunction; I42.9 Cardiomyopathy, unspecified; E87.6 Hypokalemia; R07.89 Other chest pain; Z68.28 Body mass index [BMI] 28.0-28.9, adult; I25.10 Atherosclerotic heart disease of native coronary artery without angina pectoris; F17.200 Nicotine dependence, unspecified, uncomplicated; F15.10 Other stimulant abuse, uncomplicated; F11.10 Opioid abuse, uncomplicated; Z59.00 Homelessness unspecified; Z88.1 Allergy status to other antibiotic agents
CPT/HCPCS: 36415; 71045; 80048; 80053; 80305; 83735; 83880; 84100; 84484; 85025; 85610; 85730; 87081; 93005; 94640; 96365; 96375; 99285; J1644; J1940; J3475; J7512; J7626

== ENCOUNTER 2023-06-05 07:58 | Emergency (ER) | payer MEDICAID ==
[~2023-06-05] VITALS: Ht 172.7 cm; Wt 80.3 kg
[~2023-06-05 07:58] MED LIST changes: +BUDE1AER IH; +FURO40TA9 PO; +LISI5TAB24 PO; +PRED20TA5 PO
[2023-06-05 08:03] VITALS: BP 112/78; PULSE 80; RESP 14; TEMP 98; O2SAT 100
[2023-06-05] MEDS ORDERED: ASPIRIN 81 MG TAB.CHEW PO ONE (08:25)
[2023-06-05 08:34] VITALS: PULSE 89
[2023-06-05 08:39] VITALS: O2SAT 99
[2023-06-05 08:44] LABS: BASOPHILS # (AUTO) 0.1 K/uL (0.00-0.22); BASOPHILS % (AUTO) 0.7 % (0.0-2.0); EOSINOPHILS # (AUTO) 0.2 K/uL (0-0.4); EOSINOPHILS % (AUTO) 2.3 % (0.0-4.0); HEMATOCRIT 37.7 % (36-48); HEMOGLOBIN 12.9 g/dL (12.0-16.0); LYMPHOCYTES # (AUTO) 2.2 K/uL (2.5-16.5); LYMPHOCYTES % (AUTO) 26.9 % (20.5-51.1); MEAN CORPUSCULAR HEMOGLOBIN 30 pg (27-31); MEAN CORPUSCULAR HGB CONC 34 g/dL (33-37); MEAN CORPUSCULAR VOLUME 87.7 fL (80-94); MONOCYTES # (AUTO) 0.6 K/uL (0.8-1.0); MONOCYTES % (AUTO) 7.4 % (1.7-9.3); NEUTROPHILS # (AUTO) 5.2 K/uL (1.8-7.7); NEUTROPHILS % (AUTO) 62.7 % (42.2-75.2); PLATELET COUNT (AUTO) 293 K/uL (140-450); RED CELL DISTRIBUTION WIDTH 14.2 % (11.6-13.7); WHITE BLOOD COUNT (AUTO) 8.3 K/uL (4.8-10.8)
[2023-06-05 09:04] LABS: ALBUMIN 3.9 g/dL (3.4-5.0); ANION GAP 9.7 (8-16); CALCIUM 9.3 mg/dL (8.5-10.1); CARBON DIOXIDE 31.3 mmol/L (21-32); CREATININE 1.3 mg/dL (0.6-1.3); TOTAL BILIRUBIN 0.9 mg/dL (0.0-1.0); TOTAL PROTEIN, SERUM 7.5 g/dL (6.4-8.2)
[2023-06-05] MEDS ORDERED: POTASSIUM CHLORIDE 10 MEQ TABER PO ONE (09:15)
[2023-06-05 09:20] LABS: APPEARANCE,URINE CLEAR (CLEAR); BILIRUBIN,URINE NEGATIVE (NEGATIVE); BLOOD, URINE NEGATIVE (NEGATIVE); COLOR,URINE YELLOW (YELLOW); LEUKOCYTE ESTERASE ,URINE 1+ (NEGATIVE); NITRITE, URINE NEGATIVE (NEGATIVE); PH,URINE 7.5 (5.0-9.0); PROTEIN,URINE NEGATIVE (NEGATIVE); UGLUCOSE NEGATIVE (NEGATIVE); UROBILINOGEN,URINE 0.2 EU/dL (0.2 - 1)
[2023-06-05 09:37] LABS: RBC,URINE 0-5 /HPF (0-5)
[2023-06-05 09:38] LABS: BACTERIA,URINE OCCASSIONAL /HPF (None Seen); SQUAMOUS EPITHELIAL CELL,UR 0-3 (FEW) /LPF (0-3 (FEW)); WBC,URINE 0-5 /HPF (0-5)
[2023-06-05] MEDS ORDERED: ALBU0.0912 IH (11:10)
[2023-06-05] MEDS ORDERED: POTA10TA70 PO (11:10)
[2023-06-05] MEDS ORDERED: FURO-572 PO (11:10)
== END 2023-06-05 11:26 | disposition home or self-care (01) ==
LOC: MED 07:58
DX: R07.89 Other chest pain (principal); J45.901 Unspecified asthma with (acute) exacerbation; I49.3 Ventricular premature depolarization; F43.10 Post-traumatic stress disorder, unspecified; F15.10 Other stimulant abuse, uncomplicated; Z79.899 Other long term (current) drug therapy; X58.XXXA Exposure to other specified factors, initial encounter; Y93.89 Activity, other specified; Y92.89 Other specified places as the place of occurrence of the external cause; Y99.8 Other external cause status
CPT/HCPCS: 36415; 71045; 80053; 81001; 81025; 82948; 83880; 84484; 85025; 87086; 93005; 99285

== ENCOUNTER 2023-07-13 00:20 | Emergency (ER) | payer MEDICAID ==
[~2023-07-13] VITALS: Ht 172.7 cm; Wt 78.0 kg
[~2023-07-13 00:20] MED LIST changes: +ALBU0.0912 IH; +FURO-572 PO; +POTA10TA70 PO
[2023-07-13 00:21] VITALS: BP 117/81; PULSE 61; RESP 16; TEMP 97.4; O2SAT 100
[2023-07-13 01:47] VITALS: BP 117/81; PULSE 61; RESP 16; TEMP 97.4; O2SAT 100
== END 2023-07-13 01:38 | disposition home or self-care (01) ==
LOC: MED 00:20
DX: R06.02 Shortness of breath (principal); Z53.21 Procedure and treatment not carried out due to patient leaving prior to being seen by health care provider
CPT/HCPCS: 99281

== ENCOUNTER 2023-08-14 03:15 | Observation (INO) | payer MEDICAID ==
[2023-08-14] VITALS (8 sets, daily range): BP systolic 95–116; BP diastolic 49–75; PULSE 62–77; RESP 16–27; TEMP 97.8–98; O2SAT 95–100
[~2023-08-14] VITALS: Ht 172.7 cm; Wt 77.6 kg
[2023-08-14] MEDS ORDERED: predniSONE 20 MG TAB PO ONE (03:40)
[2023-08-14] MEDS ORDERED: ALBUTEROL SULFATE/IPRATROPIU 3 ML SOL IH ONE (03:40)
[2023-08-14 03:59] LABS: BASOPHILS # (AUTO) 0.1 K/uL (0.00-0.22); BASOPHILS % (AUTO) 0.9 % (0.0-2.0); EOSINOPHILS # (AUTO) 1.8 K/uL (0-0.4); EOSINOPHILS % (AUTO) 19.1 % (0.0-4.0); HEMATOCRIT 38.6 % (36-48); HEMOGLOBIN 13.2 g/dL (12.0-16.0); LYMPHOCYTES # (AUTO) 3.2 K/uL (2.5-16.5); LYMPHOCYTES % (AUTO) 32.9 % (20.5-51.1); MEAN CORPUSCULAR HEMOGLOBIN 30 pg (27-31); MEAN CORPUSCULAR HGB CONC 34 g/dL (33-37); MEAN CORPUSCULAR VOLUME 88.3 fL (80-94); MONOCYTES # (AUTO) 0.7 K/uL (0.8-1.0); MONOCYTES % (AUTO) 6.9 % (1.7-9.3); NEUTROPHILS # (AUTO) 3.9 K/uL (1.8-7.7); NEUTROPHILS % (AUTO) 40.2 % (42.2-75.2); PLATELET COUNT (AUTO) 264 K/uL (140-450); RED BLOOD CELL COUNT(AUTO) 4.37 MIL/uL (4.20-5.40); RED CELL DISTRIBUTION WIDTH 14.1 % (11.6-13.7); WHITE BLOOD COUNT (AUTO) 9.7 K/uL (4.8-10.8)
[2023-08-14 04:24] LABS: D-DIMER < 100 ng/ml (0-400)
[2023-08-14 04:29] LABS: ALBUMIN 3.9 g/dL (3.4-5.0); ANION GAP 8.9 (8-16); CALCIUM 9.1 mg/dL (8.5-10.1); CARBON DIOXIDE 33.1 mmol/L (21-32); TOTAL BILIRUBIN 0.6 mg/dL (0.0-1.0); TOTAL PROTEIN, SERUM 7.9 g/dL (6.4-8.2)
[2023-08-14] MEDS ORDERED: ACETAMINOPHEN 325 MG TAB PO PRN (05:50)
[2023-08-14] MEDS ORDERED: ONDANSETRON 4 MG/2 ML VIAL IVP PRN (05:50)
[2023-08-14] MEDS ORDERED: ALBUTEROL 0.083% 2.5 MG/3 ML NEBU INH PRN (05:50)
[2023-08-14 05:54] LABS: FLU A ANTIGEN negative (NEGATIVE); FLU B ANTIGEN NEGATIVE (NEGATIVE)
[2023-08-14 06:09] LABS: INR 0.99 (0.8-1.2); PARTIAL THROMBOPLASTIN TIME 24.7 secs (22-35.6); PROTHROMBIN TIME 10.4 secs (10.8-13.4)
[2023-08-14] MEDS ORDERED: ENOXAPARIN 40 MG/0.4 ML SYR SUBQ SCH (09:00)
[2023-08-14] MEDS ORDERED: FUROSEMIDE 40 MG/4 ML VIAL IVP SCH (09:00)
[2023-08-14] MEDS ORDERED: lisinopriL 5 MG TAB PO SCH (09:00)
[2023-08-14] MEDS ORDERED: PRED20TA5 PO (11:49)
[2023-08-14] MEDS ORDERED: PAX20 PO (11:49)
[2023-08-14] MEDS ORDERED: FURO-572 PO (11:49)
[2023-08-14] MEDS ORDERED: ALBU0.0912 IH (11:49)
[2023-08-14] MEDS ORDERED: POTA10TA70 PO (11:49)
[2023-08-14] MEDS ORDERED: LISI5TAB24 PO (11:49)
[2023-08-14] MEDS ORDERED: PRON INH (11:49)
== END 2023-08-14 17:55 | disposition home or self-care (01) ==
LOC: MED 03:46 → MTU 05:53 → MMU 06:57
PROVIDERS: ADMIT Hospitalist; ATTEND Hospitalist
DX: I50.23 Acute on chronic systolic (congestive) heart failure (principal); Z20.822 Contact with and (suspected) exposure to COVID-19; I25.5 Ischemic cardiomyopathy; J45.901 Unspecified asthma with (acute) exacerbation; F41.8 Other specified anxiety disorders; F15.10 Other stimulant abuse, uncomplicated; I25.2 Old myocardial infarction; Z79.899 Other long term (current) drug therapy
CPT/HCPCS: 36415; 71045; 80053; 83880; 84484; 85025; 85379; 85610; 85730; 87081; 93005; 94640; 94660; 96372; 96374; 99291; G0378; J1650; J1940; J7512; J7613; Q0092

== ENCOUNTER 2023-10-26 01:00 | Inpatient (IN) | payer MEDICAID, OTHER ==
[~2023-10-26] VITALS: Ht 172.7 cm; Wt 77.1 kg
[2023-10-26] VITALS (12 sets, daily range): BP systolic 104–126; BP diastolic 45–58; PULSE 50–109; RESP 18–28; TEMP 97.2–97.9; O2SAT 78–100
[~2023-10-26 01:00] MED LIST changes: -FURO40TA9 PO
[2023-10-26] MEDS ORDERED: ALBUTEROL SULFATE/IPRATROPIU 3 ML SOL IH ONE ×2 (01:10→08:53)
[2023-10-26] MEDS: ALBUTEROL SULFATE/IPRATROPIU 3 ML SOL IH ONE ×2 (01:13→01:23)
[2023-10-26] MEDS ORDERED: methylPREDNISolone SS 125 MG/2 ML VIAL ONE (01:15)
[2023-10-26] MEDS: NACL 0.9% 1,000 ML IV ONE (01:20)
[2023-10-26] MEDS: methylPREDNISolone SS 125 MG in WATER STERILE 2 ML IV SCH (01:23)
[2023-10-26] MEDS: ALBUTEROL 0.083% 2.5 MG/3 ML NEBU INH ONE (03:20)
[2023-10-26] MEDS: ACETAMIN/CODEINE 120/12MG-5ML 5 ML UDC PO ONE (03:46)
[2023-10-26 06:14] LABS: BASOPHILS # (AUTO) 0.1 K/uL (0.00-0.22); BASOPHILS % (AUTO) 0.5 % (0.0-2.0); EOSINOPHILS # (AUTO) 1.1 K/uL (0-0.4); EOSINOPHILS % (AUTO) 8.2 % (0.0-4.0); HEMATOCRIT 38.9 % (36-48); HEMOGLOBIN 13.1 g/dL (12.0-16.0); LYMPHOCYTES # (AUTO) 2.5 K/uL (2.5-16.5); MEAN CORPUSCULAR HEMOGLOBIN 30 pg (27-31); MEAN CORPUSCULAR HGB CONC 34 g/dL (33-37); MEAN CORPUSCULAR VOLUME 88.7 fL (80-94); MONOCYTES # (AUTO) 0.9 K/uL (0.8-1.0); MONOCYTES % (AUTO) 6.4 % (1.7-9.3); NEUTROPHILS # (AUTO) 8.8 K/uL (1.8-7.7); NEUTROPHILS % (AUTO) 65.9 % (42.2-75.2); PLATELET COUNT (AUTO) 282 K/uL (140-450); RED BLOOD CELL COUNT(AUTO) 4.39 MIL/uL (4.20-5.40); WHITE BLOOD COUNT (AUTO) 13.4 K/uL (4.8-10.8)
[2023-10-26 06:36] LABS: ANION GAP 11.1 (8-16); CALCIUM 9.3 mg/dL (8.5-10.1); CARBON DIOXIDE 31.4 mmol/L (21-32); POTASSIUM 4.5 mmol/L (3.5-5.1)
[2023-10-26] MEDS ORDERED: POTASSIUM CHLORIDE 10 MEQ TABER PO PRN (08:15)
[2023-10-26] MEDS ORDERED: ONDANSETRON 4 MG/2 ML VIAL IVP PRN (08:15)
[2023-10-26] MEDS ORDERED: MAG SULF 2000 MG/WATER PREMIX 50 ML IV PRN (08:15)
[2023-10-26] MEDS ORDERED: KCL 20 MEQ IN 100 mL PREMIX 200 ML IV PRN (08:15)
[2023-10-26] MEDS ORDERED: MAGNESIUM OXIDE 400 MG TAB PO PRN (08:15)
[2023-10-26] MEDS ORDERED: MORPHINE SULFATE 2 MG/ML SYR IVP PRN (08:15)
[2023-10-26] MEDS: FUROSEMIDE 40 MG/4 ML VIAL IVP SCH (08:40)
[2023-10-26] MEDS ORDERED: ACETAMINOPHEN 325 MG TAB PO PRN (10:02)
[2023-10-26] MEDS ORDERED: HYDROcodone/APAP 5/325 MG 1 TAB TAB PO PRN (10:04)
[2023-10-26 10:21] LABS: FLU A ANTIGEN negative (NEGATIVE); FLU B ANTIGEN negative (NEGATIVE)
[2023-10-26 10:37] LABS: RSV Negative (NEGATIVE)
[2023-10-26] MEDS: methylPREDNISolone SS 40 MG/ML VIAL IVP SCH ×2 (11:40→18:44)
[2023-10-26] MEDS: ENOXAPARIN 40 MG/0.4 ML SYR SUBQ SCH (11:49)
[2023-10-26] MEDS ORDERED: methylPREDNISolone SS 40 MG in WATER STERILE 1 ML IV SCH (12:00)
[2023-10-26] MEDS: AZITHROMYCIN 500 MG in DEXTROSE 5% 250 ML IV SCH (13:33)
[2023-10-26] MEDS: ALBUTEROL SULFATE/IPRATROPIU 3 ML SOL IH SCH (14:02)
[2023-10-26 17:46] LABS: AMPHETAMINE, URINE POSITIVE ng/ml (NEG <=1000); BARBITURATE, URINE NEGATIVE ng/ml (NEG <=200); BENZODIAZEPINE, URINE NEGATIVE ng/mL (NEG <=200); COCAINE, URINE NEGATIVE ng/mL (NEG <=300)
[2023-10-26 17:47] LABS: CANNABINOID, URINE NEGATIVE ng/mL (NEG <=50); OPIATE, URINE NEGATIVE ng/mL (NEG <=2000); PHENCYCLIDINE SCREEN,URINE NEGATIVE ng/mL (NEG <=25)
[2023-10-26] MEDS: BUDESONIDE 0.5 MG/2 ML NEBU INH SCH (19:02)
[2023-10-27] VITALS (9 sets, daily range): BP systolic 96–105; BP diastolic 54–59; PULSE 53–119; RESP 16–20; TEMP 97.6–98.7; O2SAT 95–98
[2023-10-27 06:24] LABS: HEMATOCRIT 35.9 % (36-48); HEMOGLOBIN 12.2 g/dL (12.0-16.0); LYMPHOCYTES # (AUTO) 0.6 K/uL (2.5-16.5); LYMPHOCYTES % (AUTO) 3.7 % (20.5-51.1); MEAN CORPUSCULAR HEMOGLOBIN 30 pg (27-31); MEAN CORPUSCULAR HGB CONC 34 g/dL (33-37); MEAN CORPUSCULAR VOLUME 87.7 fL (80-94); MONOCYTES # (AUTO) 0.2 K/uL (0.8-1.0); MONOCYTES % (AUTO) 1.5 % (1.7-9.3); NEUTROPHILS # (AUTO) 15.1 K/uL (1.8-7.7); NEUTROPHILS % (AUTO) 94.8 % (42.2-75.2); PLATELET COUNT (AUTO) 249 K/uL (140-450); RED BLOOD CELL COUNT(AUTO) 4.09 MIL/uL (4.20-5.40); RED CELL DISTRIBUTION WIDTH 14.8 % (11.6-13.7); WHITE BLOOD COUNT (AUTO) 15.9 K/uL (4.8-10.8)
[2023-10-27 06:38] LABS: ALBUMIN 3.1 g/dL (3.4-5.0); ANION GAP 9.5 (8-16); CALCIUM 9.2 mg/dL (8.5-10.1); CARBON DIOXIDE 28.8 mmol/L (21-32); CREATININE 0.8 mg/dL (0.6-1.3); POTASSIUM 4.3 mmol/L (3.5-5.1); TOTAL BILIRUBIN 0.3 mg/dL (0.0-1.0); TOTAL PROTEIN, SERUM 7.7 g/dL (6.4-8.2)
[2023-10-27] MEDS ORDERED: AZIT250T4 PO (18:42)
[2023-10-27] MEDS ORDERED: ALBU0.0912 IH (18:42)
[2023-10-27] MEDS ORDERED: PRED20TA5 PO (18:42)
== END 2023-10-27 19:30 | disposition home or self-care (01) | DRG 141 ==
LOC: MED 01:00 → MMU 08:23 → OBSVTOIN 10-27 13:15
PROVIDERS: ADMIT Internal Medicine; ATTEND Internal Medicine
DX: J45.901 Unspecified asthma with (acute) exacerbation (principal); J96.01 Acute respiratory failure with hypoxia; I11.0 Hypertensive heart disease with heart failure; E44.1 Mild protein-calorie malnutrition; R65.10 Systemic inflammatory response syndrome (SIRS) of non-infectious origin without acute organ dysfunction; I50.9 Heart failure, unspecified; F15.10 Other stimulant abuse, uncomplicated; F17.210 Nicotine dependence, cigarettes, uncomplicated; Z20.822 Contact with and (suspected) exposure to COVID-19; Z79.899 Other long term (current) drug therapy; Z88.1 Allergy status to other antibiotic agents; Z68.25 Body mass index [BMI] 25.0-25.9, adult
CPT/HCPCS: 36415; 71045; 80048; 80053; 80305; 83735; 83880; 85025; 87081; 87420; 94640; G0378; J0456; J0696; J1650; J2920; J2930; J7060; J7613; J7626; Q0092

== ENCOUNTER 2024-07-20 22:03 | Emergency (ER) | payer OTHER ==
[~2024-07-20] VITALS: Ht 172.7 cm; Wt 83.1 kg
[~2024-07-20 22:03] MED LIST changes: +AZIT250T4 PO
[2024-07-20 22:15] VITALS: BP 120/72; PULSE 88; RESP 20; TEMP 98.9; O2SAT 97
[2024-07-20 22:20] VITALS: BP 120/72; PULSE 88; RESP 20; TEMP 98.9; O2SAT 97
[2024-07-20] MEDS ORDERED: FURO-572 PO (22:59)
[2024-07-20] MEDS ORDERED: ALBU0.0912 INH (22:59)
[2024-07-20] MEDS ORDERED: PRED20TA5 PO (22:59)
== END 2024-07-20 23:24 | disposition home or self-care (01) ==
LOC: MED 22:03
DX: J45.909 Unspecified asthma, uncomplicated (principal); Z76.0 Encounter for issue of repeat prescription; I50.9 Heart failure, unspecified; Z79.899 Other long term (current) drug therapy; Z88.1 Allergy status to other antibiotic agents
CPT/HCPCS: 99281